=== PATIENT | male | born 1975 | race Caucasian/White ===

== ENCOUNTER 2017-09-04 12:20 | Emergency (ER) | payer BC ==
[~2017-09-04] VITALS: Ht 185.4 cm; Wt 135.3 kg
[2017-09-04 12:23] VITALS: BP 153/75; PULSE 87; RESP 16; TEMP 98.4; O2SAT 96
[2017-09-04] MEDS ORDERED: MAGN30TA PO (13:16)
[2017-09-04] MEDS ORDERED: PANT20TA2 PO (13:16)
--- NOTE | 2017-09-04 13:48 | PD ---
HPI Chief Complaint: Cold / Flu Symptoms Time Seen by Provider: 13:14 Travel History International Travel<30 days: No Contact w/Intl Traveler<30days: No Traveled to known affect area: No History of Present Illness HPI 42-year-old male presents to the ED for evaluation for day history of headache, sinus congestion, fevers, nausea, nonproductive cough. Endorses pleuritic chest pain with cough, rated 8 out of 10. No alleviating factors reported. Gradual onset. He denies blurred vision, ear pain, sore throat, abdominal pain , history of seasonal allergies. He's been treating the fevers with Tylenol, last dose around 8 or 9 AM today. Patient states that he received a flu shot Thursday. He denies sick contacts. PFSH Past Medical History Hx Anticoagulant Therapy: No Diabetes: No Sleep Apnea: Yes Tetanus Vaccination: Unknown Influenza Vaccination: Yes Past Surgical History Eye Surgery: Yes (RIGHT EYE MARY PLATE) Social History Alcohol Use: Yes (SOCIAL) Tobacco Use: Yes (CIGAR OCCASSIONAL) Substance Use: No Allergies-Medications (Allergen,Severity, Reaction): Coded Allergies: No Known Allergies (Unverified , 09/04/17) Reported Meds & Prescriptions Reported Meds & Active Scripts Active Reported Pantoprazole (Pantoprazole Sodium) 20 Mg Tab Unknown Dose PO DAILY Magnesium Elemental (Magnesium) 30 Mg Tab Unknown Dose PO DAILY Review of Systems Except as stated in HPI: all other systems reviewed are Neg Physical Exam Narrative GENERAL: Well-nourished, well-developed white male in no acute distress. SKIN: Focused skin assessment warm/dry. HEAD: Normocephalic. No tenderness to palpation of the facial sinuses. EYES: No scleral icterus. No injection or drainage. ENT: Bilateral serous effusions of Pear[place] hoyt tympanic membranes. Oropharynx without erythema, edema, exudate. NECK: Supple, trachea midline. No JVD or lymphadenopathy. CARDIOVASCULAR: Regular rate and rhythm without murmurs, gallops, or rubs. RESPIRATORY: Breath sounds clear and equal bilaterally. No accessory muscle use. GASTROINTESTINAL: Abdomen soft, non-tender, nondistended. MUSCULOSKELETAL: No cyanosis, or edema. BACK: Nontender without obvious deformity. No CVA tenderness. Data Data Last Documented VS Vital Signs Date Time Temp Pulse Resp B/P (MAP) Pulse Ox O2 Delivery O2 Flow Rate FiO2 09/04/17 13:12 Room Air 09/04/17 12:23 98.4 87 16 153/75 (101) 96 Orders Orders Influenzae A/B Antigen (09/04/17 13:13) Ed Discharge Order (09/04/17 13:48) MDM Medical Decision Making Medical Screen Exam Complete: Yes Emergency Medical Condition: Yes Differential Diagnosis Viral syndrome versus upper airway cough syndrome versus influenza versus sinusitis versus seasonal allergies versus other Narrative Course 42-year-old male presents to the ED for evaluation for day history of headache, sinus congestion, fevers, nausea, nonproductive cough. Gradual onset. He denies blurred vision, ear pain, sore throat, abdominal pain. He's been treating the fevers with Tylenol, last dose around 8 or 9 AM today. Patient states that he received a flu shot Thursday. Vitals reviewed. Patient afebrile on presentation. Physical exam reveals bilateral serous effusion of the tympanic membranes but exam is otherwise unremarkable. Rapid flu swab negative. This is viral syndrome. Patient instructed to continue and hematocrit treatment with [id number] medications, including Tylenol or Motrin as stated for fever. He indicated understanding of the instructions. We discussed reasons to return to ED. The patient is stable and discharged home. Diagnosis Primary Impression: Viral syndrome Referrals: Primary Care Physician Patient Instructions: General Instructions, Viral Syndrome (ED) Additional Instructions: Rest, hydrate. Push fluids such as sports drinks, Pedialyte, popsicles, clear broth. Continue with symptomatic treatment. I recommend OTC medications containing a decongestant, he could use an antihistamine such as Asia-D, or cough medication such as Mucinex D. Alternating Motrin and Tylenol every 4-6 hours as needed for continued fever. Increase handwashing frequently to avoid the spread of the virus to other family members and the community. Disinfect commonly touched surfaces such as light switches, microwaves, remote controls. Replace toothbrush at the end of this illness. Follow-up with the primary care provider this week. Return to the ED for any urgent or emergent medical condition. Disposition: 01 DISCHARGE HOME Condition: Stable Kaya Mayberry Sep 04, 2017 13:48
== END 2017-09-04 13:59 | disposition home or self-care (01) ==
LOC: PHED 12:20 → PHEFT 13:59
DX: B34.9 Viral infection, unspecified (principal); F17.290 Nicotine dependence, other tobacco product, uncomplicated; Z79.899 Other long term (current) drug therapy
CPT/HCPCS: 87804; 99282